=== PATIENT | female | born 1965 | race Hispanic/Latino ===

== ENCOUNTER 2021-05-28 07:40 | Day surgery (SDC) | payer OTHER ==
[2021-05-27 11:49] LABS: Absolute Lymphocytes (CBC) 2.1 K/uL (0.7-4.9); Basophils % 0.7 % (0-1.3); Hematocrit 35.9 % (36.0-45.0); Lymphocytes % 28.1 % (15.3-44.8); MPV 8.4 fL (7.6-11.3); RBC Red Blood Cell Count 4.03 M/uL (3.86-4.86)
[2021-05-28] MEDS ORDERED: NA CHLORIDE 0.9% 1,000 ML ONE ×2 (07:50→09:11)
[2021-05-28] MEDS ORDERED: CEFAZOLIN/NS 1gm 1 GM/50 ML BAG ONE (07:51)
[2021-05-28] MEDS ORDERED: NS 0.9% VIAL 20 ML ONE (09:36)
[2021-05-28] MEDS: LIDOCAINE 1% 20 ML MDV ONE ×2 (09:44→10:42)
[2021-05-28] MEDS: HEPARIN 5000 UNIT/ML 1 ML VIAL ONE ×2 (09:45→10:42)
[2021-05-28] MEDS ORDERED: FENTANYL CITR 100 MCG/2 ML ONE (10:13)
[2021-05-28] MEDS ORDERED: KETOROLAC 30 MG/ML INJ ONE (10:14)
[2021-05-28] MEDS ORDERED: MIDAZOLAM HCL 2 MG/2 ML INJ ONE (10:14)
[2021-05-28] MEDS ORDERED: propofoL 200 MG/20 ML VIAL IV ONE (10:14)
[2021-05-28] MEDS ORDERED: ONDANSETRON 4 MG/2 ML VIAL ONE (10:15)
[2021-05-28] MEDS ORDERED: LIDOCAINE 1% MPF 30 ML VIAL ONE (10:15)
--- NOTE | 2021-05-28 11:25 | RAD REPORT ---
EXAM DESCRIPTION: RAD - Fluoroscopy <1 Hour - 05/28/2021 11:17 am CLINICAL HISTORY: Venous catheter insertion. PORT A CATH COMPARISON: No comparisons FINDINGS: Fluoroscopic imaging is submitted from placement of a venous catheter. Details of the pro cedure not available. Fluoroscopy time: 0.6 minutes
--- NOTE | 2021-05-28 12:07 | RAD REPORT ---
EXAM DESCRIPTION: RAD - Chest Single View - 05/28/2021 11:40 am CLINICAL HISTORY: s/p port a cath placement Chest pain. COMPARISON: Chest Pa And Lat (2 Views) dated 03/12/2021 FINDINGS: Portable technique limits examination quality. The lungs are grossly clear. The heart is normal in size. Right port catheter its tip in the SVC. No pneumothorax.
[2021-05-28] MEDS ORDERED: CODEINE 30MG/APAP 300MG TAB ONE (12:38)
[2021-05-28 13:30] VITALS: BP 119/61; TEMP 97.6; O2SAT 99
--- NOTE | 2021-05-28 22:17 | OP ---
Date of Procedure: 05/28/2021 Surgeon: Raj Walsh MD Breadman: MARY Coreas. Preoperative Diagnosis: Rectal cancer. Postoperative Diagnosis: Rectal cancer. Procedures: Placement of right IJ Port-A-Cath and interpretation of intraoperative fluoroscopy. Estimated Blood Loss: Minimal. Specimen: None. Findings: Normal anatomy. Anesthesia: MAC. Complications: None. The patient tolerated the procedure in stable condition and taken to Recovery in good general conditi on. Procedure In Detail: The patient was brought to the OR and placed in supine position. MAC anesthesi a began. The patient was prepped and draped in usual sterile fashion. Lidocaine 1% infiltrated loca lly. An 18-gauge needle used to access the right IJ vein and then a guidewire passed, position confi rmed with fluoroscopy. 3 cm counter incision made on the right anterior chest. Pocket created. Isidro neling device used to tunnel the catheter between the 2 wounds and then Seldinger technique used and tip of the catheter placed in the SVC under fluoroscopy and then catheter cut to appropriate size and attached to the Port-A-Cath device. Port-A-Cath device was attached to subcutaneous tissue with 3-0 Vicryl. 3-0 chromic was used to approximate the subcutaneous tissue and close the skin. The port f lushed with heparin and packed with heparin with good blood flow. Sterile dressing applied. The pat ient was awakened and taken to recovery room in good general condition. Chest x-ray has been ordered . If negative, the patient will be discharged to home. Disposition: Home. Condition: Stable. Discharge Instructions: Resume home medications and diet. Activity as tolerated. No heavy lifting. Remove outer dressing in 2 days. Shower. Keep wound clean and dry. Keep Steri-Strips on at all t imes. [facility]. Follow up in my office in 2 weeks. Tylenol No.3 one table t p.o. q.4 p.r.n. pain. /MODL Voice ID: [id number] Report ID: [id number]
== END 2021-05-28 13:18 | disposition home or self-care (01) ==
LOC: OR 07:40
PROVIDERS: ATTEND Surgery
PROC: 05HM33Z Insertion of Infusion Device into Right Internal Jugular Vein, Percutaneous Approach (ICD-10-PCS; principal; 2021-05-28 09:00)
DX: C20 Malignant neoplasm of rectum (principal); Z20.822 Contact with and (suspected) exposure to COVID-19
CPT/HCPCS: 85025; 36415; 82947 ×2; 71045; 76000; 36561; U0003; J2704; J1644 ×2; J2250; J3010; J0690; J7030 ×2; J2405; C1788

== ENCOUNTER 2021-12-31 06:59 | Day surgery (SDC) | payer OTHER ==
[2021-12-31] MEDS ORDERED: CEFAZOLIN SODIUM 1 GM/VIAL ONE (07:33)
[2021-12-31] MEDS ORDERED: NA CHLORIDE 0.9% 1,000 ML ONE (07:33)
[2021-12-31 07:48] VITALS: O2SAT 100
[2021-12-31] MEDS ORDERED: LIDOCAINE 1% W/EPI 1:100,000 10 ML VIAL ONE (09:17)
[2021-12-31] MEDS ORDERED: BUPIVACA 0.5%/EPI 0.0005%/PF 30 ML VIAL ONE (09:18)
[2021-12-31] MEDS ORDERED: FENTANYL CITR 100 MCG/2 ML ONE (09:24)
[2021-12-31] MEDS ORDERED: propofoL 200 MG/20 ML VIAL IV ONE (09:24)
[2021-12-31] MEDS ORDERED: ONDANSETRON 4 MG/2 ML VIAL ONE (09:24)
[2021-12-31] MEDS ORDERED: MIDAZOLAM HCL 2 MG/2 ML INJ ONE (09:24)
[2021-12-31] MEDS ORDERED: LIDOCAINE 1% MPF 5 ML VIAL ONE (09:24)
--- NOTE | 2021-12-31 09:46 | P.OP ---
Preoperative diagnosis: Removal of Chemotherapy Port Postoperative diagnosis: Removal of Chemotherapy Port Primary procedure: Removal of Chemotherapy Port Anesthesia: MAC + Local Estimated blood loss: <5cc Specimen: Port for ID only Findings: no infection, port intact Complications: None Transferred to: Recovery Room Condition: Good
[2021-12-31 10:43] VITALS: BP 120/64; TEMP 97.2
--- NOTE | 2021-12-31 20:37 | OP ---
Date of Procedure: 12/31/2021 Surgeon: Frankie Walter MD, Preoperative Diagnosis: Attention to chemotherapy port. Postoperative Diagnosis: Attention to chemotherapy port. Procedure Performed: Removal of chemotherapy port. Anesthesia: MAC plus local with 0.25% Marcaine with epinephrine. Estimated Fluid Loss: Less than 5 mL. Specimen: Port for ID only. Findings: No infection. Port intact. Complications: None. Disposition: The patient was transferred to the recovery room in good condition. Procedure In Detail: After informed was obtained, the patient was brought to the operating room, pre pped and draped in the usual sterile fashion after adequate anesthesia achieved. The patient was stefany fatou in steep Trendelenburg position. Going through the previous incision after appropriate anestheti zing skin, I incised the skin with a 15 blade down to subcutaneous tissues. I used electrocautery an d blunt dissection to expose the port. The sutures were removed securing the port to the prepectoral fascia with tenotomy scissors. After this was performed, the port was brought out of the field. Th e patient remained in steep Trendelenburg position. Pressure was held at the insertion site and the exit site. The catheter was removed, sent for ID only. The patient was then positioned in the head up position. At this point, the area was copiously irrigated and closed with interrupted 3-0 Vicryl suture. The skin was then irrigated once more and deep dermal plane closed with interrupted 3-0 Vicr yl sutures. Skin was closed with 4-0 Monocryl in a running fashion. Dermabond placed over top. The patient tolerated the procedure well without evidence of complication and transferred to PACU in goo d condition. All counts were correct at the end of the case. BLAIR/FEDERICO Voice ID: [id number] Report ID: [id number]
== END 2021-12-31 10:45 | disposition home or self-care (01) ==
LOC: OR 06:59
PROVIDERS: ATTEND Surgery
PROC: 0JPT0WZ Removal of Totally Implantable Vascular Access Device from Trunk Subcutaneous Tissue and Fascia, Open Approach (ICD-10-PCS; principal; 2021-12-31 08:45)
DX: Z45.2 Encounter for adjustment and management of vascular access device (principal); Z85.038 Personal history of other malignant neoplasm of large intestine
CPT/HCPCS: 82947 ×2; 88300; 36590; J2704; J2250; J7030; J2405; J0690; J3010